=== PATIENT | female | born 1980 ===

== ENCOUNTER 2017-06-24 22:07 | Emergency (ER) | payer BC ==
[2017-06-24 22:58] VITALS: BP 108/75; PULSE 100; RESP 20; TEMP 98.2; O2SAT 100
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
== END 2017-06-25 00:17 | disposition home or self-care (01) ==
LOC: C.ER 22:07
DX: S16.1XXA Strain of muscle, fascia and tendon at neck level, initial encounter (principal); V89.2XXA Person injured in unspecified motor-vehicle accident, traffic, initial encounter
CPT/HCPCS: 96372; 99283; J1885